=== PATIENT | male | born 1970 | race Hispanic/Latino ===

== ENCOUNTER 2018-01-13 08:31 | Inpatient (IN) | payer OTHER ==
[2018-01-13 08:31] VITALS: BMI 29.5
--- NOTE | 2018-01-13 09:11 | C.PDOC ---
History Of Present Illness 47 yo male come in for evaluation of left buttock open wound associated with copious yellow discharge gradually developed for past 1 week. Pt reports, " first noted some insect bite that I decided to cut and since then its getting worse". Pt noted some chills for past 2 days. Otherwise, pt denies high fever, headache, sore throat, CP, SOB, abd. pain, N/V/D, denies change in BM, UTI sx, denies weakness, sensory or vascular deficits to Left leg. Ambulate to Ed for evaluation, not in nay apparent distress. Time Seen by Provider: 01/13/18 08:39 Chief Complaint (Nursing): Abnormal Skin Integrity History Per: Patient Onset/Duration Of Symptoms: Gradual Past Medical History Reviewed: Historical Data, Nursing Documentation, Vital Signs Vital Signs: Last Vital Signs Temp 98.3 F 01/13/18 08:34 Pulse 85 01/13/18 08:34 Resp 19 01/13/18 08:34 BP 124/80 01/13/18 08:34 Pulse Ox 97 01/13/18 09:31 - Medical History PMH: Depression Denies: Diabetes, Hepatitis, HIV, HTN, Seizures, Sexually Transmitted Disease - [facility] Procedures PSYCHIAT DRUG THERAP NEC (08/02/13) Family History: States: Unknown Family Hx - Social History Hx Tobacco Use: No Hx Alcohol Use: No Hx Substance Use: Yes - Immunization History Hx Tetanus Toxoid Vaccination: No Review Of Systems Except As Marked, All Systems Reviewed And Found Negative. Constitutional: Positive for: Chills. Negative for: Fever ENT: Negative for: Mouth Swelling Cardiovascular: Negative for: Chest Pain, Palpitations Respiratory: Negative for: Cough, Shortness of Breath, Wheezing Gastrointestinal: Negative for: Nausea, Vomiting, Abdominal Pain, Diarrhea, Melena, Hematochezia, Hematemesis Genitourinary: Negative for: Incontinence Musculoskeletal: Negative for: Neck Pain, Back Pain Skin: Positive for: Lesions Neurological: Negative for: Weakness, Numbness, Altered Mental Status, Headache , Dizziness Physical Exam - Physical Exam Appears: Well, Non-toxic, No Acute Distress Skin: Normal Color, Warm, Dry, Other ((+) open wound overlying Left hip area with granulation tissue 4cm diameter, surround erythema, copious thick yellow discharge with odor. NO flactulance) Head: Normacephalic Eye(s): bilateral: PERRL Nose: No Flaring, No Discharge Oral Mucosa: Moist Throat: No Erythema, No Drooling Neck: Trachea Midline, Supple Cardiovascular: Rhythm Regular Respiratory: No Decreased Breath Sounds, No Accessory Muscle Use, No Stridor, No Wheezing Gastrointestinal/Abdominal: Soft, No Tenderness, No Distention, No Guarding, No Rebound Back: No CVA Tenderness Extremity: Normal ROM, No Tenderness, No Deformity, No Swelling Neurological/Psych: Oriented x3, Normal Speech, Normal Motor, Normal Sensation, Normal Reflexes ED Course And Treatment - Laboratory Results Result Diagrams: 01/13/18 09:58 01/13/18 09:58 Lab Interpretation: No Acute Changes O2 Sat by Pulse Oximetry: 97 Pulse Ox Interpretation: Normal Progress Note: Pt remained stable during the ED evaluation. Afebrile, hemodynamicaly stable. Case discussed with surgical lead for evaluation, consult for . After pt was seen by surgery, I&D performed and admission recommend. Discussed with pt, agrees with plan. Disposition - Disposition Disposition: HOSPITALIZED Disposition Time: 11:02 Condition: STABLE Forms: [facility] (Wallisian) - Clinical Impression Clinical Impression: Cellulitis, Abscess
[2018-01-13] MEDS ORDERED: Piperacillin/Tazobact 3.375 GM in Sodium Chloride 100 ML IVPB STA (09:32)
[2018-01-13] MEDS ORDERED: Sodium Chloride 0.9% 1,000 ML IV ONE (09:32)
[2018-01-13] MEDS ORDERED: Tdap Vaccine 0.5 ml Vial (10-64 yrs) IM ONE ×2 (09:33→09:51)
[2018-01-13] MEDS ORDERED: Piperacillin/Tazobact 3.375 gm 100 ML IVPB ONE (09:51)
[2018-01-13] MEDS ORDERED: Vancomycin 1 GM 1 GM/250 ML BAG IVPB ONE (09:51)
[2018-01-13] MEDS ORDERED: Sodium Chloride 0.9% 1,000 ML ONE (09:51)
[2018-01-13 10:16] LABS: BASO # 0.1 K/uL (0.0-0.2); BASO % 0.8 % (0.0-2.0); EOS # 0.1 K/uL (0.0-0.7); EOS % 1.1 % (0.0-4.0); HEMOGLOBIN 14.3 g/dL (12.0-18.0); LYMPH # 2.2 K/uL (1.0-4.3); LYMPH % 24.2 % (20.0-40.0); MEAN CELL VOLUME 88.3 fL (80.0-94.0); MEAN CORPUSCULAR HEMOGLOBIN 30.8 pg (27.0-31.0); MEAN CORPUSCULAR HGB CONC 34.9 g/dL (33.0-37.0); MEAN PLATELET VOLUME 8.2 fL (7.2-11.7); MONO # 0.8 K/uL (0.0-0.8); NEUT # 5.9 K/uL (1.8-7.0); NEUT % 64.9 % (50.0-75.0); RBC 4.64 Mil/uL (4.40-5.90); RED CELL DISTRIBUTION WIDTH 12.8 % (11.5-14.5)
[2018-01-13 10:22] LABS: ALB/GLOB RATIO 1.6 (1.0-2.1); ALBUMIN 4.5 g/dL (3.5-5.0); BLOOD UREA NITROGEN 13 mg/dL (9-20); CALCIUM 9.6 mg/dl (8.6-10.4); GFR NON-AFRICAN AMERICAN > 60
[2018-01-13 10:23] LABS: ALT/SGPT 36 U/L (21-72); AST/SGOT 34 U/L (17-59)
[2018-01-13] MEDS ORDERED: Lidocaine 2% Inj (20ml) INFIL ONE (11:24)
[2018-01-13] MEDS ORDERED: Lidocaine 2% MPF (5 ml) Inj ONE (11:28)
[2018-01-13 12:45] LABS: URINE BILIRUBIN NEGATIVE (NEGATIVE); URINE BLOOD NEGATIVE (NEGATIVE); URINE CLARITY Clear (Clear); URINE COLOR Yellow (YELLOW); URINE GLUCOSE (UA) NORMAL (Normal); URINE LEUKOCYTE ESTERASE NEG Leu/uL (Negative); URINE PROTEIN NEGATIVE (NEGATIVE); URINE UROBILINOGEN NORMAL mg/dL (0.2-1.0)
--- NOTE | 2018-01-13 13:21 | CP.PCM.CON ---
<GrahamBret - Last Filed: 01/13/18 14:28> History of Present Illness - History of Present Illness History of Present Illness: 47M with no siginificant past medical history presents to [facility] [place] ED for skin abscess along left trochanterir region. Patient states he was gardening last Sunday when he felt something bite him. Two days later patient reports having developed an abscess which he tried to drain at home by slicing it with a razor blade. Patient reports skin region became more erythematous and painful. Began having fevers/chills on Sunday so he decided to come to hospital. Denies headache/dizziness, chest pain, SOB, nausea/vomiting, diarrhe,a dysuria. PMH: none PSH: left hip replacement, right inguinal hernia repair Soc Hx: Denies smoking, Denies illivit drug us, Denies EtOH use for past six years Allergies: NKDA Review of Systems - Review of Systems Review of Systems: 12 pt ROS negative, except as stated in HPI Past Patient History - Tetanus Immunizations Tetanus Immunization: Up to Date - Past Social History Smoking Status: Never Smoked - CARDIAC Hx Hypertension: No - PULMONARY Hx Tuberculosis: No - NEUROLOGICAL Hx Seizures: No - HEMATOLOGICAL/ONCOLOGICAL Hx Human Immunodeficiency Virus (HIV): No - MUSCULOSKELETAL/RHEUMATOLOGICAL Hx Falls: No - GASTROINTESTINAL Hx Gastrointestinal Disorders: No - GENITOURINARY/GYNECOLOGICAL Hx Sexually Transmitted Disorders: No - PSYCHIATRIC Hx Depression: Yes Hx Substance Use: Yes Meds Allergies/Adverse Reactions: Allergies Allergy/AdvReac Type Severity Reaction Status Date / Time No Known Allergies Allergy Verified 01/13/18 08:37 Physical Exam - Constitutional Appears: No Acute Distress - Head Exam Head Exam: NORMOCEPHALIC - Eye Exam Eye Exam: EOMI, Normal appearance - ENT Exam ENT Exam: Mucous Membranes Moist - Respiratory Exam Respiratory Exam: NORMAL BREATHING PATTERN - Cardiovascular Exam Cardiovascular Exam: +S1, +S2 - GI/Abdominal Exam GI & Abdominal Exam: Soft - Skin Skin Exam: Erythema, Warm Additional comments: +left skin abscess along superficial region of left trochanter region +copious purulent drainage Results - Vital Signs Recent Vital Signs: Last Vital Signs Temp 98.3 F 01/13/18 08:34 Pulse 74 01/13/18 12:23 Resp 18 01/13/18 12:23 BP 115/71 01/13/18 12:23 Pulse Ox 98 01/13/18 12:23 - Labs Result Diagrams: 01/13/18 09:58 01/13/18 09:58 Labs: Laboratory Results - last 24 hr 01/13/1818 01/13/18 09:58 09:58 12:32 WBC 9.0 RBC 4.64 Hgb 14.3 Hct 41.0 MCV 88.3 MCH 30.8 MCHC 34.9 RDW 12.8 Plt Count 236 MPV 8.2 Neut % (Auto) 64.9 Lymph % (Auto) 24.2 [place] % (Auto) 9.0 Eos % (Auto) 1.1 Baso % (Auto) 0.8 Neut # (Auto) 5.9 Lymph # (Auto) 2.2 [place] # (Auto) 0.8 Eos # (Auto) 0.1 Baso # (Auto) 0.1 Sodium 142 Potassium 4.7 Chloride 106 Carbon Dioxide 26 Anion Gap 15 BUN 13 Creatinine 0.8 Est GFR ( Amer) > 60 Est GFR (Non-Af Amer) > 60 Random Glucose 112 H Calcium 9.6 Total Bilirubin 1.2 AST 34 ALT 36 Alkaline Phosphatase 48 Total Creatine Kinase 131 Total Protein 7.4 Albumin 4.5 Globulin 2.9 Albumin/Globulin Ratio 1.6 Urine Color Yellow Urine Clarity Clear Urine pH 7.[address] 1.016 Urine Protein Negative Urine Glucose (UA) Normal Urine Ketones Negative Urine Blood Negative Urine Nitrate Negative Urine Bilirubin Negative Urine Urobilinogen Normal Ur Leukocyte Esterase Neg Urine WBC (Auto) < 1 Urine RBC (Auto) 1 Assessment & Plan - Assessment and Plan (Free Text) Assessment: 47M with left leg abscess along trochanteric region Plan: -I&D -f/u Cultures -ABx per ID -Change packing daily -Analgesics prn -D/w Dr. Lesly Beltre PGY3 - Incision & Drainage Of Abscess Anesthesia: Lidocaine 1% Prep Used: Betadine Procedure: Incised W/Scalpel Blade#: (11), Drained Pus, Irrigated Cavity W/ Saline, Probed To Break Up Loculations, Packed W/Gauze (iodoform packing), Cultures Obtained And Sent To Lab <Doroteo Sellers - Last Filed: 01/15/18 17:27> Results - Vital Signs Recent Vital Signs: Last Vital Signs Temp 98.2 F 01/15/18 07:00 Pulse 76 01/15/18 07:00 Resp 20 01/15/18 07:00 BP 144/91 H 01/15/18 07:00 Pulse Ox 97 01/15/18 07:00 - Labs Result Diagrams: 01/15/18 11:35 01/15/18 11:35 Labs: Laboratory Results - last 24 hr 01/15/18 01/15/18 11:35 11:35 WBC 6.3 RBC 4.30 L Hgb 13.4 Hct 38.3 MCV 88.9 MCH 31.1 H MCHC 35.0 RDW 13.1 Plt Count 255 MPV 8.1 Neut % (Auto) 60.9 Lymph % (Auto) 26.1 [place] % (Auto) 11.0 H Eos % (Auto) 1.5 Baso % (Auto) 0.5 Neut # (Auto) 3.8 Lymph # (Auto) 1.6 [place] # (Auto) 0.7 Eos # (Auto) 0.1 Baso # (Auto) 0.0 Sodium 142 Potassium 3.9 Chloride 105 Carbon Dioxide 28 Anion Gap 14 BUN 15 Creatinine 1.0 Est GFR ( Amer) > 60 Est GFR (Non-Af Amer) > 60 Random Glucose 103 Calcium 9.4 Phosphorus 3.0 Magnesium 1.9 Total Bilirubin 0.8 AST 42 ALT 81 H D Alkaline Phosphatase 53 Total Protein 6.7 Albumin 3.9 Globulin 2.8 Albumin/Globulin Ratio 1.4
--- NOTE | 2018-01-13 13:45 | CP.PCM.CON ---
History of Present Illness - History of Present Illness History of Present Illness: 47 yo male come in for evaluation of left buttock open wound associated with copious yellow discharge gradually developed for past 1 week. Pt reports, " first noted some insect bite that I decided to cut and since then its getting worse". Pt noted some chills for past 2 days. Had I and D cultures pending ID consulted for this IV rx ordered - Medical History PMH: Depression Denies: Diabetes, Hepatitis, HIV, HTN, Seizures, Sexually Transmitted Disease - [facility] Procedures PSYCHIAT DRUG THERAP NEC (08/02/13) Review of Systems - Review of Systems All systems: reviewed and no additional remarkable complaints except - Constitutional Constitutional: As Per HPI - EENT Eyes: absent: As Per HPI, Blind Spots, Blurred Vision, Change in Vision, Decreased Night Vision, Diplopia, Discharge, Dry Eye, Exophthalmos, Floaters, Irritation, Itchy Eyes, Loss of Peripheral Vision, Pain, Photophobia, Requires Corrective Lenses, Sees Flashes, Spots in Vision, Tunnel Vision, Other Visual Disturbances, Loss of Vision, Other Ears: absent: As Per HPI, Decreased Hearing, Ear Discharge, Ear Pain, Tinnitus, Abnormal Hearing, Disequilibrium, Dizziness, Other Nose/Mouth/Throat: absent: As Per HPI, Epistaxis, Nasal Congestion, Nasal Discharge, Nasal Obstruction, Nasal Trauma, Nose Pain, Post Nasal Drip, Sinus Pain, Sinus Pressure, Bleeding Gums, Change in Voice, Dental Pain, Dry Mouth, Dysphagia, Halitosis, Hoarsness, Lip Swelling, Mouth Lesions, Mouth Pain, Odynophagia, Sore Throat, Throat Swelling, Tongue Swelling, Facial Pain, Neck Pain, Neck Mass, Other - Cardiovascular Cardiovascular: absent: As Per HPI, Acrocyanosis, Chest Pain, Chest Pain at Rest , Chest Pain with Activity, Claudication, Diaphoresis, Dyspnea, Dyspnea on Exertion, Edema, Irregular Heart Rhythm, Pain Radiating to Arm/Neck/Jaw, Leg Edema, Leg Ulcers, Lightheadedness, Orthopnea, Palpitations, Paroxysmal Nocturnal Dyspnea, Pedal Edema, Radiating Pain, Rapid Heart Rate, Slow Heart Rate, Syncope, Other - Respiratory Respiratory: absent: As Per HPI, Cough, Dyspnea, Hemoptysis, Dyspnea on Exertion , Wheezing, Snoring, Stridor, Pain on Inspiration, Chest Congestion, Excessive Mucous Production, Change in Mucous Color, Pain with Coughing, Other - Gastrointestinal Gastrointestinal: absent: As Per HPI, Abdominal Pain, Belching, Bloating, Change in Bowel Habits, Change in Stool Character, Coffee Ground Emesis, Constipation, Cramping, Diarrhea, Dyspepsia, Dysphagia, Early Satiety, Excessive Flatus, Fecal Incontinence, Heartburn, Hematemesis, Hematochezia, Loose Stools, Melena, Nausea, Odynophagia, Temesmus, Vomiting, Other - Genitourinary Genitourinary: absent: As Per HPI, Change in Urinary Stream, Difficulty Urinating, Dysuria, Flank Pain, Hematuria, Pyuria, Nocturia, Urinary Incontinence, Urinary Frequency, Urinary Hesitance, Urinary Urgency, Voiding Freq/Small Amts, Freq UTI, Hx Renal/Bladder Calculi, Hx /Renal Surgery, Bladder Distension, Other - Musculoskeletal Musculoskeletal: As Per HPI - Integumentary Integumentary: As Per HPI, Skin Pain, Wounds - Neurological Neurological: absent: As Per HPI, Abnormal Gait, Abnormal Hearing, Abnormal Movements, Abnormal Speech, Behavioral Changes, Burning Sensations, Confusion, Convulsions, Disequilibrium, Dizziness, Numbness, Focal Weakness, Frequent Falls , Headaches, Lack of Coordination, Loss of Vision, Memory Loss, Paresthesias, Radicular Pain, Restless Legs, Sensory Deficit, Syncope, Tingling, Tremor, Vertigo, Weakness, Other Visual Disturbances, Other - Psychiatric Psychiatric: absent: As Per HPI, Abnormal Sleep Pattern, Anhedonia, Anxiety, Auditory Hallucinations, Behavioral Changes, Change in Appetite, Change in Libido, Confusion, Depression, Difficulty Concentrating, Hallucinations, Homicidal Ideation, Hopelessness, Irritability, Memory Loss, Mood Swings, Panic Attacks, Paranoia, Suicidal Ideation, Visual Hallucinations, Tactile Hallucinations, Other - Endocrine Endocrine: absent: As Per HPI, Change in Body Appearance, Change in Libido, Cold Intolorance, Deepening of Voice, Excessive Sweating, Fatigue, Flushing, Heat Intolorance, Increase in Ring/Shoe/Hat Size, Palpitations, Polydipsia, Polyphagia, Polyuria, Other - Hematologic/Lymphatic Hematologic: absent: As Per HPI, Easy Bleeding, Easy Bruising, Lymphadenopathy, Other Past Patient History - Tetanus Immunizations Tetanus Immunization: Up to Date - Past Social History Smoking Status: Never Smoked - CARDIAC Hx Hypertension: No - PULMONARY Hx Tuberculosis: No - NEUROLOGICAL Hx Seizures: No - HEMATOLOGICAL/ONCOLOGICAL Hx Human Immunodeficiency Virus (HIV): No - MUSCULOSKELETAL/RHEUMATOLOGICAL Hx Falls: No - GASTROINTESTINAL Hx Gastrointestinal Disorders: No - GENITOURINARY/GYNECOLOGICAL Hx Sexually Transmitted Disorders: No - PSYCHIATRIC Hx Depression: Yes Hx Substance Use: Yes Meds Allergies/Adverse Reactions: Allergies Allergy/AdvReac Type Severity Reaction Status Date / Time No Known Allergies Allergy Verified 01/13/18 08:37 Physical Exam - Constitutional Appears: Non-toxic, Chronically Ill - Head Exam Head Exam: NORMOCEPHALIC - Eye Exam Eye Exam: PERRL. absent: Scleral icterus - ENT Exam ENT Exam: Mucous Membranes Dry - Neck Exam Neck exam: Negative for: Lymphadenopathy - Respiratory Exam Respiratory Exam: Decreased Breath Sounds, Clear to Auscultation Bilateral - Cardiovascular Exam Cardiovascular Exam: REGULAR RHYTHM, +S1, +S2 - GI/Abdominal Exam GI & Abdominal Exam: Diminished Bowel Sounds, Soft. absent: Tenderness - Rectal Exam Rectal Exam: Deferred - Exam Exam: NORMAL INSPECTION - Extremities Exam Extremities exam: Positive for: pedal pulses present. Negative for: calf tenderness, pedal edema, tenderness - Back Exam Back exam: absent: CVA tenderness (L), CVA tenderness (R), paraspinal tenderness - Neurological Exam Neurological exam: Alert, CN II-XII Intact, Oriented x3, Reflexes Normal - Psychiatric Exam Psychiatric exam: Normal Mood - Skin Skin Exam: Dry Additional comments: wound noted Results - Vital Signs Recent Vital Signs: Last Vital Signs Temp 98.2 F 01/13/18 13:41 Pulse 75 01/13/18 13:41 Resp 16 01/13/18 13:41 BP 116/72 01/13/18 13:41 Pulse Ox 98 01/13/18 13:41 - Labs Result Diagrams: 01/13/18 09:58 01/13/18 09:58 Labs: Laboratory Results - last 24 hr 01/13/18 01/13/18 01/13/18 09:58 09:58 12:32 WBC 9.0 RBC 4.64 Hgb 14.3 Hct 41.0 MCV 88.3 MCH 30.8 MCHC 34.9 RDW 12.8 Plt Count 236 MPV 8.2 Neut % (Auto) 64.9 Lymph % (Auto) 24.2 [place] % (Auto) 9.0 Eos % (Auto) 1.1 Baso % (Auto) 0.8 Neut # (Auto) 5.9 Lymph # (Auto) 2.2 [place] # (Auto) 0.8 Eos # (Auto) 0.1 Baso # (Auto) 0.1 Sodium 142 Potassium 4.7 Chloride 106 Carbon Dioxide 26 Anion Gap 15 BUN 13 Creatinine 0.8 Est GFR ( Amer) > 60 Est GFR (Non-Af Amer) > 60 Random Glucose 112 H Calcium 9.6 Total Bilirubin 1.2 AST 34 ALT 36 Alkaline Phosphatase 48 Total Creatine Kinase 131 Total Protein 7.4 Albumin 4.5 Globulin 2.9 Albumin/Globulin Ratio 1.6 Urine Color Yellow Urine Clarity Clear Urine pH 7.0 Ur Specific [place] 1.016 Urine Protein Negative Urine Glucose (UA) Normal Urine Ketones Negative Urine Blood Negative Urine Nitrate Negative Urine Bilirubin Negative Urine Urobilinogen Normal Ur Leukocyte Esterase Neg Urine WBC (Auto) < 1 Urine RBC (Auto) 1 Assessment & Plan (1) Abscess Status: Acute (2) Cellulitis Status: Acute - Assessment and Plan (Free Text) Assessment: cont wound care check cultures IV then PO antibiotics
[2018-01-13] MEDS ORDERED: Piperacillin/Tazobact 3.375 GM in Sodium Chloride 100 ML IVPB SCH (14:00)
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
[2018-01-13] MEDS ORDERED: Pneumococcal 23-Valent Vaccine IM ONE (14:34)
[2018-01-13] MEDS: Piperacillin/Tazobact 3.375 GM in Sodium Chloride 100 ML IVPB SCH ×2 (16:30→23:30)
[2018-01-13] MEDS: Vancomycin 1 gm/NS 200 ml 1 GM/200 ML BAG IVPB SCH (21:10)
[2018-01-14 00:39] VITALS: RESP 20
[2018-01-14 07:40] LABS: BASO % 0.6 % (0.0-2.0); EOS # 0.2 K/uL (0.0-0.7); EOS % 2.5 % (0.0-4.0); LYMPH # 1.8 K/uL (1.0-4.3); LYMPH % 27.1 % (20.0-40.0); MEAN CELL VOLUME 89.7 fL (80.0-94.0); MEAN CORPUSCULAR HEMOGLOBIN 31.4 pg (27.0-31.0); MEAN CORPUSCULAR HGB CONC 35.1 g/dL (33.0-37.0); MEAN PLATELET VOLUME 8.1 fL (7.2-11.7); MONO # 0.7 K/uL (0.0-0.8); MONO % 9.8 % (0.0-10.0); RBC 4.14 Mil/uL (4.40-5.90); RED CELL DISTRIBUTION WIDTH 12.9 % (11.5-14.5); WHITE BLOOD COUNT 6.7 K/uL (4.8-10.8)
--- NOTE | 2018-01-14 07:45 | CP.PCM.PN ---
<Miguel Pimentel - Last Filed: 01/14/18 17:25> Subjective - Date & Time of Evaluation Date of Evaluation: 01/14/18 Time of Evaluation: 07:42 - Subjective Subjective: PGY-1 general surgery note for Dr Sellers service Patient is seen and examined at bedside. Patient denies any acute events overnight. Patient denies any overnight pain or discomfort in the left leg area where I&D was done. Patient denies fever/chills, nausea, vomiting, headache or dizziness. Patient admits to some pain after packing was changed this morning. Objective - Vital Signs/Intake and Output Vital Signs (last 24 hours): Temp Pulse Resp BP Pulse Ox 98.2 F 78 20 103/63 97 01/14/18 04:00 01/14/18 04:00 01/14/18 04:00 01/14/18 04:00 01/14/18 04:00 Intake and Output: 01/14/18 01/14/18 06:59 18:59 Intake Total 650 Balance 650 - Medications Medications: Current Medications Acetaminophen (Tylenol 325mg Tab) 650 mg PO Q6 PRN PRN Reason: Fever >100.4 F Last Admin: 01/13/18 16:55 Dose: 650 mg Vancomycin/Sodium Chloride (Vancomycin 1 Gm/Ns 200 Ml) 1 gm in 200 mls @ 133 mls/hr IVPB Q12H CLAIRE PRN Reason: Protocol Stop: 01/18/18 22:01 Last Admin: 01/13/18 21:10 Dose: 133 mls/hr Piperacillin Sod/Tazobactam (Sod 3.375 gm/ Sodium Chloride) 100 mls @ 200 mls/ hr IVPB Q8H CLAIRE PRN Reason: Protocol Last Admin: 01/13/18 23:30 Dose: 200 mls/hr Ketorolac Tromethamine (Toradol) 30 mg IVP Q6 PRN PRN Reason: Pain, moderate (4-7) Last Admin: 01/13/18 23:26 Dose: 30 mg - Labs Labs: 01/13/18 09:58 01/13/18 09:58 - Constitutional Appears: Non-toxic, No Acute Distress - Head Exam Head Exam: ATRAUMATIC, NORMAL INSPECTION, NORMOCEPHALIC - Eye Exam Eye Exam: EOMI, Normal appearance - ENT Exam ENT Exam: Normal Exam - Neck Exam Neck Exam: Full ROM - Respiratory Exam Respiratory Exam: NORMAL BREATHING PATTERN. absent: Accessory Muscle Use, Respiratory Distress - GI/Abdominal Exam GI & Abdominal Exam: Soft - Extremities Exam Additional comments: left lower extremity open wound with packing in place in trochanteric region, covered with 4x4 dressing, dressing clean, dry intact. Packing wet but no drainage or oozing. - Back Exam Back Exam: NORMAL INSPECTION - Neurological Exam Neurological Exam: Alert, Awake, Oriented x3 Assessment and Plan - Assessment and Plan (Free Text) Assessment: 47M with left leg abscess along trochanteric region Plan: - continue packing changes daily - continue pain medication as indicated - F/U wound cultures - Continue abx as per ID recs Plan to be discussed with Dr Marlo Pimentel, PGY-1 <Doroteo Sellers B - Last Filed: 01/15/18 17:37> Objective - Vital Signs/Intake and Output Vital Signs (last 24 hours): Temp Pulse Resp BP Pulse Ox 98.2 F 76 20 144/91 H 97 01/15/18 07:00 01/15/18 07:00 01/15/18 07:00 01/15/18 07:00 01/15/18 07:00 Intake and Output: 01/15/18 01/15/18 06:59 18:59 Intake Total 650 Balance 650 - Labs Labs: 01/15/18 11:35 01/15/18 11:35 Attending/Attestation - Attestation I have personally seen and examined this patient.: Yes I have fully participated in the care of the patient.: Yes I have reviewed all pertinent clinical information, including history, physical exam and plan: Yes Notes (Text): Pt was seen and examined at bedside Agree with above note and assessment Pt is improving clinically C.W IV antibiotics Local wound care DC plan Plan d.w pt in detail Risk and benefit explained in detail.
[2018-01-14 07:49] LABS: BLOOD UREA NITROGEN 22 mg/dL (9-20); CALCIUM 9.2 mg/dl (8.6-10.4); GFR NON-AFRICAN AMERICAN > 60
[2018-01-14] MEDS: Piperacillin/Tazobact 3.375 GM in Sodium Chloride 100 ML IVPB SCH ×2 (08:09→16:23)
[2018-01-14] MEDS: Vancomycin 1 gm/NS 200 ml 1 GM/200 ML BAG IVPB SCH ×2 (10:00→21:17)
--- NOTE | 2018-01-14 11:03 | CP.PCM.PN ---
Subjective - Date & Time of Evaluation Date of Evaluation: 01/14/18 Time of Evaluation: 10:00 - Subjective Subjective: wound c/s pending iv rx in progress Objective - Vital Signs/Intake and Output Vital Signs (last 24 hours): Temp Pulse Resp BP Pulse Ox 97.8 F 75 20 104/63 95 01/14/18 07:00 01/14/18 07:00 01/14/18 07:00 01/14/18 07:00 01/14/18 07:00 Intake and Output: 01/14/18 01/14/18 06:59 18:59 Intake Total 650 Balance 650 - Medications Medications: Current Medications Acetaminophen (Tylenol 325mg Tab) 650 mg PO Q6 PRN PRN Reason: Fever >100.4 F Last Admin: 01/13/18 16:55 Dose: 650 mg Vancomycin/Sodium Chloride (Vancomycin 1 Gm/Ns 200 Ml) 1 gm in 200 mls @ 133 mls/hr IVPB Q12H CLAIRE PRN Reason: Protocol Stop: 01/18/18 22:01 Last Admin: 01/14/18 10:00 Dose: 133 mls/hr Piperacillin Sod/Tazobactam (Sod 3.375 gm/ Sodium Chloride) 100 mls @ 200 mls/ hr IVPB Q8H CLAIRE PRN Reason: Protocol Last Admin: 01/14/18 08:09 Dose: 200 mls/hr Ketorolac Tromethamine (Toradol) 30 mg IVP Q6 PRN PRN Reason: Pain, moderate (4-7) Last Admin: 01/14/18 08:08 Dose: 30 mg - Labs Labs: 01/14/18 06:53 01/14/18 06:53 - Constitutional Appears: Non-toxic, Chronically Ill - Head Exam Head Exam: NORMOCEPHALIC - Eye Exam Eye Exam: PERRL - ENT Exam ENT Exam: Mucous Membranes Dry - Neck Exam Neck Exam: absent: Lymphadenopathy - Respiratory Exam Respiratory Exam: Decreased Breath Sounds - Cardiovascular Exam Cardiovascular Exam: REGULAR RHYTHM Assessment and Plan (1) Abscess Status: Acute (2) Cellulitis Status: Acute
--- NOTE | 2018-01-14 15:33 | CP.PCM.PN ---
Subjective - Date & Time of Evaluation Date of Evaluation: 01/14/18 Time of Evaluation: 13:45 - Subjective Subjective: clinically same Objective - Vital Signs/Intake and Output Vital Signs (last 24 hours): Temp Pulse Resp BP Pulse Ox 97.8 F 75 20 104/63 95 01/14/18 07:00 01/14/18 07:00 01/14/18 07:00 01/14/18 07:00 01/14/18 07:00 Intake and Output: 01/14/18 01/14/18 06:59 18:59 Intake Total 650 700 Balance 650 700 - Medications Medications: Current Medications Acetaminophen (Tylenol 325mg Tab) 650 mg PO Q6 PRN PRN Reason: Fever >100.4 F Last Admin: 01/13/18 16:55 Dose: 650 mg Vancomycin/Sodium Chloride (Vancomycin 1 Gm/Ns 200 Ml) 1 gm in 200 mls @ 133 mls/hr IVPB Q12H CLAIRE PRN Reason: Protocol Stop: 01/18/18 22:01 Last Admin: 01/14/18 10:00 Dose: 133 mls/hr Piperacillin Sod/Tazobactam (Sod 3.375 gm/ Sodium Chloride) 100 mls @ 200 mls/ hr IVPB Q8H CLAIRE PRN Reason: Protocol Last Admin: 01/14/18 08:09 Dose: 200 mls/hr Ketorolac Tromethamine (Toradol) 30 mg IVP Q6 PRN PRN Reason: Pain, moderate (4-7) Last Admin: 01/14/18 08:08 Dose: 30 mg - Labs Labs: 01/14/18 06:53 01/14/18 06:53 - Constitutional Appears: Well - Head Exam Head Exam: ATRAUMATIC, NORMAL INSPECTION, NORMOCEPHALIC - Eye Exam Eye Exam: EOMI, Normal appearance, PERRL Pupil Exam: NORMAL ACCOMODATION, PERRL - ENT Exam ENT Exam: Mucous Membranes Moist, Normal Exam - Neck Exam Neck Exam: Full ROM, Normal Inspection. absent: Lymphadenopathy - Respiratory Exam Respiratory Exam: Decreased Breath Sounds - Cardiovascular Exam Cardiovascular Exam: REGULAR RHYTHM, +S1, +S2 - GI/Abdominal Exam GI & Abdominal Exam: Soft, Diminished Bowel Sounds - Rectal Exam Rectal Exam: Deferred
[2018-01-15] MEDS: Piperacillin/Tazobact 3.375 GM in Sodium Chloride 100 ML IVPB SCH ×2 (00:28→08:00)
--- NOTE | 2018-01-15 07:02 | CP.PCM.PN ---
Subjective - Date & Time of Evaluation Date of Evaluation: 01/15/18 Time of Evaluation: 08:00 - Subjective Subjective: PGY-2 Med Note- Dr. Fernando Dixon's service Patient was seen and examined at bedside in the AM. Patient states he has mild tenderness to the region but otherwise is feeling well. Patient denies fever, chills, nausea, vomiting, chest pain, shortness of breath, diarrhea or constipation. Objective - Vital Signs/Intake and Output Vital Signs (last 24 hours): Temp Pulse Resp BP Pulse Ox 98.4 F 67 20 106/68 96 01/14/18 23:15 01/14/18 23:15 01/14/18 23:15 01/14/18 23:15 01/14/18 23:15 Intake and Output: 01/15/18 01/15/18 06:59 18:59 Intake Total 650 Balance 650 - Medications Medications: Current Medications Acetaminophen (Tylenol 325mg Tab) 650 mg PO Q6 PRN PRN Reason: Fever >100.4 F Last Admin: 01/13/18 16:55 Dose: 650 mg Vancomycin/Sodium Chloride (Vancomycin 1 Gm/Ns 200 Ml) 1 gm in 200 mls @ 133 mls/hr IVPB Q12H CLAIRE PRN Reason: Protocol Stop: 01/18/18 22:01 Last Admin: 01/14/18 21:17 Dose: 133 mls/hr Piperacillin Sod/Tazobactam (Sod 3.375 gm/ Sodium Chloride) 100 mls @ 200 mls/ hr IVPB Q8H CLAIRE PRN Reason: Protocol Last Admin: 01/15/18 00:28 Dose: 200 mls/hr Ketorolac Tromethamine (Toradol) 30 mg IVP Q6 PRN PRN Reason: Pain, moderate (4-7) Last Admin: 01/14/18 16:21 Dose: 30 mg - Labs Labs: 01/14/18 06:53 01/14/18 06:53 - Constitutional Appears: Non-toxic, No Acute Distress - Head Exam Head Exam: ATRAUMATIC, NORMAL INSPECTION - Eye Exam Eye Exam: EOMI, Normal appearance - ENT Exam ENT Exam: Mucous Membranes Moist - Respiratory Exam Respiratory Exam: Clear to Ausculation Bilateral, NORMAL BREATHING PATTERN - Cardiovascular Exam Cardiovascular Exam: REGULAR RHYTHM, +S1, +S2 - GI/Abdominal Exam GI & Abdominal Exam: Soft, Normal Bowel Sounds. absent: Tenderness - Extremities Exam Extremities Exam: Normal Inspection - Neurological Exam Neurological Exam: Alert, Awake, Oriented x3 - Psychiatric Exam Psychiatric exam: Normal Affect - Skin Additional comments: Left Trochanter Region dressing c/d/i Assessment and Plan - Assessment and Plan (Free Text) Assessment: Cellulitis of the Left Trochanter Region - Patient afebrile - General Surgery Consult: Dr. Grace --> help appreciated * s/p ID 01/13/18 * Tylenol 650mg q6h prn for fever * Toradol 30mg IV q6 prn for pain - ID Consult: Dr. Kang --> help appreciated * Zosyn 3.375gm q8h started 01/13/18 * Vancomycin 1gm q12h started 01/13/18 - Wound Culture: Negative - Blood Culture: Negative Prophylaxis - SCDs - Patient Ambulates Management per Dr. Thor Dixon Please take antibiotic for 7 days: Clindamycin 300mg four times per day Please take an over the counter probiotic daily for 7 days. Please take Motrin 600mg every 6 hours with food as needed for pain. Return to work in 7 days. Follow up with Dr. Sellers and Dr. Luana Dixon in 1 week, Thank you for allowing us to participate in your care.
[2018-01-15 07:53] VITALS: BP 144/91; PULSE 76; TEMP 98.2; O2SAT 97
[2018-01-15] MEDS: Vancomycin 1 gm/NS 200 ml 1 GM/200 ML BAG IVPB SCH (10:32)
--- NOTE | 2018-01-15 11:11 | CP.PCM.PN ---
Subjective - Date & Time of Evaluation Date of Evaluation: 01/15/18 Time of Evaluation: 08:00 - Subjective Subjective: wound c/s neg d/c on PO Clinda follow up with dr Christina Dixon Objective - Vital Signs/Intake and Output Vital Signs (last 24 hours): Temp Pulse Resp BP Pulse Ox 98.2 F 76 20 144/91 H 97 01/15/18 07:00 01/15/18 07:00 01/15/18 07:00 01/15/18 07:00 01/15/18 07:00 Intake and Output: 01/15/18 01/15/18 06:59 18:59 Intake Total 650 Balance 650 - Medications Medications: Current Medications Acetaminophen (Tylenol 325mg Tab) 650 mg PO Q6 PRN PRN Reason: Fever >100.4 F Last Admin: 01/13/18 16:55 Dose: 650 mg Vancomycin/Sodium Chloride (Vancomycin 1 Gm/Ns 200 Ml) 1 gm in 200 mls @ 133 mls/hr IVPB Q12H CLAIRE PRN Reason: Protocol Stop: 01/18/18 22:01 Last Admin: 01/15/18 10:32 Dose: 133 mls/hr Piperacillin Sod/Tazobactam (Sod 3.375 gm/ Sodium Chloride) 100 mls @ 200 mls/ hr IVPB Q8H CLAIRE PRN Reason: Protocol Last Admin: 01/15/18 08:00 Dose: 200 mls/hr Ketorolac Tromethamine (Toradol) 30 mg IVP Q6 PRN PRN Reason: Pain, moderate (4-7) Last Admin: 01/15/18 07:57 Dose: 30 mg - Labs Labs: 01/14/18 06:53 01/14/18 06:53 - Constitutional Appears: Non-toxic, Chronically Ill - Head Exam Head Exam: NORMOCEPHALIC - Eye Exam Eye Exam: PERRL - ENT Exam ENT Exam: Mucous Membranes Dry - Neck Exam Neck Exam: absent: Lymphadenopathy - Respiratory Exam Respiratory Exam: Decreased Breath Sounds - Cardiovascular Exam Cardiovascular Exam: REGULAR RHYTHM, +S1, +S2 Assessment and Plan (1) Abscess Status: Acute (2) Cellulitis Status: Acute - Assessment and Plan (Free Text) Plan: cont rx as out pt
[2018-01-15 12:10] LABS: BASO % 0.5 % (0.0-2.0); EOS # 0.1 K/uL (0.0-0.7); EOS % 1.5 % (0.0-4.0); HEMOGLOBIN 13.4 g/dL (12.0-18.0); LYMPH # 1.6 K/uL (1.0-4.3); LYMPH % 26.1 % (20.0-40.0); MEAN CELL VOLUME 88.9 fL (80.0-94.0); MEAN CORPUSCULAR HEMOGLOBIN 31.1 pg (27.0-31.0); MEAN PLATELET VOLUME 8.1 fL (7.2-11.7); MONO # 0.7 K/uL (0.0-0.8); NEUT # 3.8 K/uL (1.8-7.0); NEUT % 60.9 % (50.0-75.0); NRBC % 0.1 % (0.0-2.0); RBC 4.3 Mil/uL (4.40-5.90); RED CELL DISTRIBUTION WIDTH 13.1 % (11.5-14.5); WHITE BLOOD COUNT 6.3 K/uL (4.8-10.8)
[2018-01-15 12:42] LABS: ALB/GLOB RATIO 1.4 (1.0-2.1); ALBUMIN 3.9 g/dL (3.5-5.0); ALT/SGPT 81 U/L (21-72); AST/SGOT 42 U/L (17-59); BLOOD UREA NITROGEN 15 mg/dL (9-20); CALCIUM 9.4 mg/dl (8.6-10.4); GFR NON-AFRICAN AMERICAN > 60
--- NOTE | 2018-01-15 18:22 | CP.PCM.CON ---
Addendum entered and electronically signed by Bret Stevenson DO 01/16/18 10:33: Correction: Left thigh abscess Original Note: <Bret Stevenson - Last Filed: 01/15/18 18:18> History of Present Illness - History of Present Illness History of Present Illness: PRE-OP DIAGNOSIS: Left leg abscess POST-OP DIAGNOSIS: Same PROCEDURE: incision and drainage of abscess Performing Physician: Bret Stevenson PGY3, Dr. Sellers PROCEDURE: A timeout protocol was performed prior to initiating the procedure. The area was prepared and draped in the usual, sterile manner. The site was anesthetized with 1% lidocaine. A linear incision using an 11 blade along the local skin lines was made and copioius amount of purulent material expressed. The abscess was explored thoroughly and sequestered pockets were opened. Bleeding was minimal. Packing:iodoform Followup: The patient tolerated the procedure well without complications. Standard post-procedure care is explained and return precautions are given. Follow up with Dr Lawrence in one week. C/w antibiotics as per ID recs. PROCEDURE NOTE FOR PATIENT SOO [place] CONSULT FOR ABSCESS OF LEFT THIGH Anesthesia: Lidocaine 1% Prep Used: Betadine Procedure: Incised W/Scalpel Blade#: (11), Drained Pus, Irrigated Cavity W/ Saline, Probed To Break Up Loculations, Packed W/Gauze (iodoform packing), Cultures Obtained And Sent To Lab Past Patient History - Tetanus Immunizations Tetanus Immunization: Up to Date - Past Social History Smoking Status: Never Smoked - CARDIAC Hx Hypertension: No - PULMONARY Hx Tuberculosis: No - NEUROLOGICAL Hx Seizures: No - HEMATOLOGICAL/ONCOLOGICAL Hx Human Immunodeficiency Virus (HIV): No - MUSCULOSKELETAL/RHEUMATOLOGICAL Hx Falls: No - GASTROINTESTINAL Hx Gastrointestinal Disorders: No - GENITOURINARY/GYNECOLOGICAL Hx Sexually Transmitted Disorders: No - PSYCHIATRIC Hx Depression: Yes Hx Substance Use: Yes - ANESTHESIA Hx Anesthesia: No Hx Anesthesia Reactions: No Hx Malignant Hyperthermia: No Has any member of the family had a problem w/ anesthesia?: No Meds Home Medications: Home Medication List Medication Instructions Recorded Confirmed Type Clindamycin HCl [Cleocin HCl] 300 mg PO QID 7 Days #28 capsule 01/15/18 Rx Allergies/Adverse Reactions: Allergies Allergy/AdvReac Type Severity Reaction Status Date / Time No Known Allergies Allergy Verified 01/13/18 08:37 Results - Vital Signs Recent Vital Signs: Last Vital Signs Temp 98.2 F 01/15/18 07:00 Pulse 76 01/15/18 07:00 Resp 20 01/15/18 07:00 BP 144/91 H 01/15/18 07:00 Pulse Ox 97 01/15/18 07:00 - Labs Result Diagrams: 01/15/18 11:35 01/15/18 11:35 Labs: Laboratory Results - last 24 hr 01/15/18 01/15/18 11:35 11:35 WBC 6.3 RBC 4.30 L Hgb 13.4 Hct 38.3 MCV 88.9 MCH 31.1 H MCHC 35.0 RDW 13.1 Plt Count 255 MPV 8.1 Neut % (Auto) 60.9 Lymph % (Auto) 26.1 [place] % (Auto) 11.0 H Eos % (Auto) 1.5 Baso % (Auto) 0.5 Neut # (Auto) 3.8 Lymph # (Auto) 1.6 [place] # (Auto) 0.7 Eos # (Auto) 0.1 Baso # (Auto) 0.0 Sodium 142 Potassium 3.9 Chloride 105 Carbon Dioxide 28 Anion Gap 14 BUN 15 Creatinine 1.0 Est GFR ( Amer) > 60 Est GFR (Non-Af Amer) > 60 Random Glucose 103 Calcium 9.4 Phosphorus 3.0 Magnesium 1.9 Total Bilirubin 0.8 AST 42 ALT 81 H D Alkaline Phosphatase 53 Total Protein 6.7 Albumin 3.9 Globulin 2.8 Albumin/Globulin Ratio 1.4 <Doroteo Sellers - Last Filed: 01/16/18 15:56> Results - Vital Signs Recent Vital Signs: Last Vital Signs Temp 98.2 F 01/15/18 07:00 Pulse 76 01/15/18 07:00 Resp 01/15/18 07:00 BP 144/91 H 01/15/18 07:00 Pulse Ox 97 01/15/18 07:00 - Labs Result Diagrams: 01/15/18 11:35 01/15/18 11:35 Attending/Attestation - Attestation I have personally seen and examined this patient.: Yes I have fully participated in the care of the patient.: Yes I have reviewed all pertinent clinical information: Yes Notes (Text): Pre Op Diagnosis : Left thigh Abscess
--- NOTE | 2018-01-16 10:33 | PCM.SURG1 ---
Surgeon's Initial Post Op Note - Surgeon's Notes Surgeon: Dr. Sellers Solar Lab Technician: Dr. Stevenson Type of Anesthesia: Local Pre-Operative Diagnosis: Left thigh abscess Operative Findings: left thigh abscess Post-Operative Diagnosis: left thigh abscess Operation Performed: incision and drainage of left thigh abscess Specimen/Specimens Removed: purulent fluid sent for culture and gram stain Estimated Blood Loss: EBL {In ML}: 5 Blood Products Given: N/A Drains Used: No Drains Post-Op Condition: Good Date of Surgery/Procedure: 01/13/18 Time of Surgery/Procedure: 11:30
== END 2018-01-15 12:35 | disposition home or self-care (01) | DRG 603 ==
LOC: C.ER 08:31 → C.9E 11:05 → C.6T 13:29
PROVIDERS: ADMIT Internal Medicine Nephrology; ATTEND Internal Medicine Nephrology
PROC: 0H9LXZZ Drainage of Left Lower Leg Skin, External Approach (ICD-10-PCS; principal; 2018-01-13)
DX: L02.416 Cutaneous abscess of left lower limb (principal); L03.317 Cellulitis of buttock; S31.829A Unspecified open wound of left buttock, initial encounter; W57.XXXA Bitten or stung by nonvenomous insect and other nonvenomous arthropods, initial encounter; Z96.642 Presence of left artificial hip joint; W26.8XXA Contact with other sharp object(s), not elsewhere classified, initial encounter; F32.9 Major depressive disorder, single episode, unspecified